=== PATIENT | female | born 1985 | race Caucasian/White ===

== ENCOUNTER 2016-05-22 17:58 | Emergency (ER) | payer BC ==
[~2016-05-22] VITALS: Ht 170.2 cm; Wt 65.0 kg
[~2016-05-22 17:58] MED LIST: HYDR-3754 PO; IBUP-15 PO; NORE0.353 PO; NORG1TAB30 PO; NORG1TAB7; PREN-94 PO
[2016-05-22] MEDS ORDERED: LIDOCAINE PF 1% (XYLOCAINE) 2 ML VIAL INJ ONE (18:30)
[2016-05-22] MEDS ORDERED: cefTRIAXone 1 GM (ROCEPHIN) VIAL IM ONE (18:30)
[2016-05-22] MEDS ORDERED: CEPH-331 PO (18:37)
[2016-05-22] MEDS ORDERED: HYDR-3702 PO (18:37)
[2016-05-22] MEDS ORDERED: PREN1COM15 PO (20:26)
[2016-05-22 20:34] VITALS: BP 117/66
== END 2016-05-22 19:03 | disposition home or self-care (01) ==
LOC: ED 18:00
DX: N61.0 Mastitis without abscess (principal)
CPT/HCPCS: 96372; 99282; J0696; J2001; 99283